=== PATIENT | female | born 1965 | race Caucasian/White ===

== ENCOUNTER → 2016-08-05 | Outpatient (CLI) | payer MEDICAID ==
--- NOTE | 2016-08-08 16:03 | RADIOLOGY REPORT PS360 ---
DIG MAMM-SCREEN [facility]OSSE[facility]N W/CAD CAD Screening COMPARISON: None, the patient has not had a mammogram for the past 20 years INDICATION: There is a history of breast cancer in a patient maternal aunt diagnosed after menopause TECHNIQUE: Standard CC and MLO images were obtained. R2 CAD reviewed. FINDINGS: There is a moderately dense and heterogenic parenchymal pattern lessening sensitivity of mammography. There are scattered benign-appearing calcifications in each breast. There is faint arterial calcination noted bilaterally as well. There are no suspicious microcalcifications. Several small nodes in both axilla. There is no suspicious lesion and there are no suspicious microcalcifications. IMPRESSION: Diffusely dense parenchymal pattern with no suspicious lesion seen recommend yearly follow-up BI-RADS CATEGORY: 2_Benign RECOMMENDED FOLLOWUP: 12M 12 MONTH FOLLOW-UP (A letter has been sent to the patient regarding results of the study.)
== END ==
LOC: RAD 16:07
DX: Z12.31 Encounter for screening mammogram for malignant neoplasm of breast (principal)
CPT/HCPCS: G0202

== ENCOUNTER → 2017-04-24 | Outpatient (CLI) | payer MEDICAID ==
--- NOTE | 2017-04-24 14:04 | RADIOLOGY REPORT PS360 ---
HAND-LT-3 VIEWS HISTORY: Left hand pain OSTEOARTHRITIS ORDERING PHYSICIAN: Augusta Moore APRN PATIENT AGE: 52 years COMPARISON: None FINDINGS: No fracture or dislocation. No lytic or blastic change. There is normal mineralization. There are mild osteoarthritic changes of the PIP and DIP of the second digit and the DIP of the third digit. No erosive changes are apparent. IMPRESSION: Mild osteoarthritis
--- NOTE | 2017-04-24 14:05 | RADIOLOGY REPORT PS360 ---
HAND-RT 3 VIEWS HISTORY: Hand pain OSTEOARTHRITIS ORDERING PHYSICIAN: Augusta Moore APRN PATIENT AGE: 52 years COMPARISON: None FINDINGS: No fracture or dislocation. No lytic or blastic change. There is normal mineralization. There is osteoarthritis of the DIP of the fifth digit and the PIP of the second digit these digits have a somewhat early gull wing appearance which may be seen with erosive osteoarthritis. 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
== END ==
LOC: RAD 13:18
DX: M19.041 Primary osteoarthritis, right hand (principal); M19.042 Primary osteoarthritis, left hand